=== PATIENT | female | born 1995 | race American Indian/Alaskan Native ===

== ENCOUNTER 2020-10-28 12:32 | Emergency (ER) | payer SELFPAY ==
[2020-10-28 12:59] VITALS: BP 134/78
--- NOTE | 2020-10-28 14:57 | Emergency Department Report ---
ED General Adult HPI - General Chief complaint: Pain General Stated complaint: OUT OF MEDS Time Seen by Provider: 10/28/20 14:14 Source: patient Mode of arrival: Ambulatory Limitations: No Limitations - History of Present Illness Initial comments: 24-year-old -[place] female patient presents requesting refills of her pain medication. She states she is taking hydrocodone for back pain caused by a herniated disc in her low back. She reports she is currently following with a weapons specialist, however she has not followed up with a specialist since her last refill of her medication. Patient states she is supposed to schedule an appointment for injections in her back soon. She denies any new symptoms, loss of bladder/bowel control, numbness/tingling/weakness in her limbs, difficulty with ambulation, or history of cancer. She also reports OTC ibuprofen and Tylenol are not helping. Patient rates her pain as 7/10 in severity. - Related Data Previous Rx's Medication Instructions Recorded Last Taken Type Ibuprofen [Motrin] 800 mg PO Q8HR PRN #15 tablet 11/18/15 Unknown Rx Diclofenac Sodium 50 mg PO TID PRN #21 tablet. 10/28/20 Unknown Rx methocarbamoL [Methocarbamol] 750 - 1,500 mg PO TID PRN #24 10/28/20 Unknown Rx tablet Allergies Allergy/AdvReac Type Severity Reaction Status Date / Time codeine Allergy Unknown Verified 11/18/15 10:56 ED Review of Systems ROS: Stated complaint: OUT OF MEDS Other details as noted in HPI Constitutional: denies: fever, malaise Respiratory: denies: shortness of breath Cardiovascular: denies: chest pain Gastrointestinal: denies: abdominal pain, hematochezia Genitourinary: denies: hematuria Neurological: denies: weakness, numbness, paresthesias, abnormal gait ED Past Medical Hx - Past Medical History Hx Headaches / Migraines: Yes Additional medical history: back pain - Social History Smoking Status: Former Smoker - Medications Home Medications: Home Medications Medication Instructions Recorded Confirmed Last Taken Type Ibuprofen [Motrin] 800 mg PO Q8HR PRN #15 tablet 11/18/15 Unknown Rx Diclofenac Sodium 50 mg PO TID PRN #21 tablet. 10/28/20 Unknown Rx methocarbamoL [Methocarbamol] 750 - 1,500 mg PO TID PRN #24 10/28/20 Unknown Rx tablet ED Physical Exam - General Limitations: No Limitations General appearance: alert, in no apparent distress, obese - Head Head exam: Present: atraumatic, normocephalic - Eye Eye exam: Present: normal appearance - Respiratory Respiratory exam: Absent: respiratory distress - Cardiovascular Cardiovascular Exam: Present: regular rate - Extremities Exam Extremities exam: Present: full ROM - Back Exam Back exam: Present: full ROM. Absent: other (No deformities noted in lower back) - Expanded Back Exam Expanded Back exam: Absent: saddle anesthesia - Neurological Exam Neurological exam: Present: alert, oriented X3, normal gait. Absent: motor sensory deficit - Expanded Neurological Exam Expanded Sensory exam: Lower Extremity Light Touch: Normal Motor strength exam: RLE: 5, LLE: 5 - Psychiatric Psychiatric exam: Present: normal affect, normal mood - Skin Skin exam: Present: warm, dry, intact, normal color. Absent: rash ED Course Vital Signs 10/28/20 12:57 Temperature 98.4 F Pulse Rate 74 Respiratory 18 Rate Blood Pressure 134/78 O2 Sat by Pulse 98 Oximetry ED Medical Decision Making - Medical Decision Making 24-year-old -[place] female patient presents requesting refills of her pain medication. She states she is taking hydrocodone for back pain caused by a herniated disc in her low back. She reports she is currently following with a weapons specialist, however she has not followed up with a specialist since her last refill of her medication. Patient states she is supposed to schedule an appointment for injections in her back soon. She denies any new symptoms, loss of bladder/bowel control, numbness/tingling/weakness in her limbs, difficulty with ambulation, or history of cancer. She also reports OTC ibuprofen and Tylenol are not helping. Patient rates her pain as 7/10 in severity. No neurological Critical care attestation.: If time is entered above; I have spent that time in minutes in the direct care of this critically ill patient, excluding procedure time. ED Disposition Clinical Impression: Back pain, chronic Disposition: [id number] TO HOME OR SELFCARE Is pt being admited?: No Condition: Stable Additional Instructions: Please follow-up with your weapons specialist within 1 week Prescriptions: Diclofenac Sodium 50 mg PO TID PRN #21 tablet.dr [email or web address] Reason: pain methocarbamoL [Methocarbamol] 750 - 1,500 mg PO TID PRN #24 tablet PRN Reason: muscle spasm/tightness Forms: Work/School Release Form(ED)
== END 2020-10-28 15:00 | disposition home or self-care (01) ==
LOC: ED 12:32
DX: M54.5 Low back pain (principal); G89.29 Other chronic pain; G43.909 Migraine, unspecified, not intractable, without status migrainosus; Z87.891 Personal history of nicotine dependence; Z98.890 Other specified postprocedural states; Z79.899 Other long term (current) drug therapy; Z88.5 Allergy status to narcotic agent
CPT/HCPCS: 99282